=== PATIENT | female | born 1960 | race Caucasian/White ===

== ENCOUNTER 2016-07-09 10:46 | Emergency (ER) | payer OTHER ==
[~2016-07-09] VITALS: Ht 157.5 cm; Wt 74.8 kg
--- NOTE | 2016-07-09 11:34 | ED GI/GU/ABDOMINAL COMPLAINT ---
History of Present Illness General Chief Complaint: General Adult Stated Complaint: HERNIA PAIN Source: patient Exam Limitations: no limitations Vital Signs & Intake/Output Vital Signs & Intake/Output Vital Signs Date Time Temp Pulse Resp B/P B/P Pulse O2 O2 Flow FiO2 Mean Ox Delivery Rate 07/09 1459 98.2 62 15 120/65 94 Room Air Room Air 07/09 1320 Room Air Room Air 07/09 1257 98.0 70 18 125/80 96 Room Air 07/09 1156 71 16 94 Room Air 07/09 1051 98.6 80 20 143/94 7 Allergies Coded Allergies: ketorolac (From TORADOL) ([facility] 07/09/16) meperidine (From DEMEROL) ([facility] 07/09/16) [facility]) Reconcile Medications Ezetimibe (Zetia) 10 MG TABLET 1 TAB PO QPM CHOLESTEROL (Reported) Ondansetron (Zofran Odt) 4 MG TAB.RAPDIS 1 TAB SL TID PRN nausea Oxycodone HCl/Acetaminophen (Percocet 5-325 MG Tablet) 5 MG-325 MG TABLET 1 TAB PO Q6H PRN PAIN Rosuvastatin Calcium (Crestor) 40 MG TABLET 1 TAB PO QPM CHOLESTEROL ( Reported) Triage Note: PER PT VENTRAL HERNIA HX, PER PT THINK IT BURST, VOMITING ALL NIGHT PIN INTENSE Triage Nurses Notes Reviewed? yes ? n Is pt currently ? No HPI: Patient is a 55-year-old female presents complaining of severe epigastric pain. Patient has a history of multiple ventral hernias has had surgery 6 previous times. Yesterday patient was lifting and felt a pop in her mid upper abdomen. Pain has been severe since then. 3 episodes of vomiting since onset of pain. Last bowel movement was 2 days ago. Patient reports she is not passing flatus. Patient reports this feels similar to her previous hernias that have required surgery. Patient tried taking Tylenol but reports that she vomited the medication. Patient denies fevers, chills. (SU RIVERA,NATE) Past History Travel History Traveled to [place] past 21 day No Medical History Any Pertinent Medical History? see below for history Neurological: NONE EENT: NONE Cardiovascular: CHOL Respiratory: NONE Gastrointestinal: HERNIA,VENTRAL Hepatic: NONE Musculoskeletal: NONE Psychiatric: NONE Endocrine: NONE Surgical History Surgical History: appendectomy, cholecystectomy, partial hysterectomy, 6 ventral hernia repairs Psychosocial History What is your primary language Slovak Tobacco Use: Never used ETOH Use: occasional use Family History Hx Contributory? No (NATE PATEL) Review of Systems Review of Systems Constitutional: Denies: chills, fever. EENTM: Reports: no symptoms. Respiratory: Denies: cough, short of breath. Cardiovascular: Denies: chest pain. GI: Reports: see HPI. Genitourinary: Reports: no symptoms. Musculoskeletal: Reports: no symptoms. Skin: Reports: no symptoms. Neurological/Psychological: Reports: no symptoms. Hematologic/Endocrine: Reports: no symptoms. Immunologic/Allergic: Reports: no symptoms. (NATE PATEL) Physical Exam Physical Exam General Appearance: well developed/nourished, alert, awake Head: atraumatic, normal appearance Eyes: Bilateral: normal appearance, PERRL, EOMI. Ears, Nose, Throat, Mouth: hearing grossly normal, moist mucous membrane Neck: normal inspection, supple, full range of motion Respiratory: normal breath sounds, chest non-tender, no respiratory distress, lungs clear Cardiovascular: regular rate/rhythm Gastrointestinal: mildly hypoactive bowel sounds. Surgical scar in the epigastric area. Tenderness with mild guarding to the inferior portion of the surgical scar with small palpable mass. Back: normal inspection, normal range of motion Extremities: normal range of motion Neurologic/Psych: no motor/sensory deficits, awake, alert, oriented x 3, normal gait, normal mood/affect Skin: normal color, warm/dry Core Measures ACS in differential dx? No Severe Sepsis Present: No Septic Shock Present: No (NATE PATEL) Progress Differential Diagnosis: hernia incarcerated/strangulated, sbo, intra-abdominal infection, pancreatitis Plan of Care: Orders Procedure Date/time Status URINALYSIS 07/09 1139 Complete PROTHROMBIN TIME 07/09 1139 Complete LIPASE 07/09 1139 Complete LACTIC ACID 07/09 1139 Complete COMPREHENSIVE METABOLIC PANEL 07/09 1139 Complete CBC WITHOUT DIFFERENTIAL 07/09 1139 Complete AMYLASE 07/09 1139 Complete Laboratory Tests 07/09/16 1439: Lactic Acid Cancelled 07/09/16 1249: Urinalysis LIGHT H, Urine Color YEL, Urine Clarity CLEAR, Urine pH 6.0, Ur Specific Luther 1.020, Urine Protein NEG, Urine Ketones NEG, Urine Nitrite NEG, Urine Bilirubin NEG, Urine Urobilinogen 0.2, Ur Leukocyte Esterase NEG, Ur Microscopic SEDIMENT EXAMINED, Urine RBC 3-5, Urine WBC RARE, Ur Epithelial Cells MANY H, Urine Bacteria MANY H, Hyaline Casts RARE H, Urine Mucus PACKD H, Urine Hemoglobin SMALL H, Urine Glucose NEG 07/09/16 1149: Anion Gap 11, Estimated GFR > 60, BUN/Creatinine Ratio 20.0, Glucose 93, Lactic Acid 1.5, Calcium 9.9, Total Bilirubin 0.7, AST 26, ALT 43, Alkaline Phosphatase 83, Total Protein 7.2, Albumin 4.5, Globulin 2.7, Albumin/Globulin Ratio 1.7, Amylase 60, Lipase 149, PT 9.7, INR 0.92, CBC w Diff NO MAN DIFF REQ, RBC 5.27, MCV 85.9, MCH 28.6, RDW 13.8, MPV 8.9, Gran % 49.9, Lymphocytes % 40.8, Monocytes % 7.3, Eosinophils % 1.4, Basophils % 0.6, Absolute Granulocytes 2.2, Absolute Lymphocytes 1.8, Absolute Monocytes 0.3, Absolute Eosinophils 0.1, Absolute Basophils 0, PUBS MCHC 33.3 1340: Results of CT scan and labs discussed with patient. Call placed to Dr. Islas to discuss patient. Discussed with Dr. Costa. 1355: Discussed with Dr. Islas: will have surgical PA evaluate patient. 1530: Patient evaluated by surgical PA grey: patient can be discharged home and follow up with Dr. Islas outpatient. 1545: Patient tolerating oral intake. Disposition plan discussed with patient. Appears stable for discharge. (SU RIVERA,NATE) Diagnostic Imaging: Viewed by Me: CT Scan. Discussed w/RAD: CT Scan. Radiology Impression: PATIENT: JAREK MEYER PRESENT AGE: 55 PATIENT ACCOUNT NO: [id number] : 62 LOCATION: [facility] ORDERING PHYSICIAN: NATE RIVERA SERVICE DATE: 07/09/16 EXAM TYPE: CAT - CT ABD & PELVIS W/O IV CONTRAS EXAMINATION: CT ABDOMEN AND PELVIS WITHOUT CONTRAST CLINICAL INFORMATION: History of multiple ventral hernias with upper abdominal pain. COMPARISON: None TECHNIQUE: Multidetector volumetric imaging was performed from the superior aspect of the liver through the pubic symphysis. Sagittal and coronal reformatted images were obtained on the technologist's workstation. DLP: 358 mGy-cm FINDINGS: LUNG BASES: The visualized lung bases are unremarkable. LIVER, GALLBLADDER, AND BILIARY TREE: The liver is normal in size, shape, and attenuation. No focal hepatic lesion or biliary ductal dilatation is present. The gallbladder has been removed. PANCREAS: Unremarkable. SPLEEN: Unremarkable. ADRENAL GLANDS: Unremarkable. KIDNEYS AND URETERS: The kidneys are normal in size, shape, and attenuation. No hydronephrosis, hydroureter, or calculi seen. No perinephric stranding. BLADDER: Unremarkable. GASTROINTESTINAL TRACT: Mild colonic diverticulosis. No focal inflammatory process or obstruction. ABDOMINAL WALL: There is a grouping of ventral hernias in the upper abdomen with minimal inflammatory stranding. These hernias contain peritoneal fat with no bowel. There is evidence of a right inguinal hernia repair with no recurrence. LYMPH NODES: Normal. VASCULAR: Unremarkable. PELVIC VISCERA: The uterus is absent. OSSEOUS STRUCTURES: Unremarkable. IMPRESSION: Small ventral midline hernias of the upper abdomen with mild inflammatory stranding. These hernias contain fat only. No bowel obstruction. Otherwise unremarkable study. DICTATED BY: CAMPBELL LONG MD DATE/TIME DICTATED:07/09/161317 CURBER:PABLO DATE/TIME TRANSCRIBED:07/09/161317 CONFIDENTIAL, DO NOT COPY WITHOUT APPROPRIATE AUTHORIZATION. <Electronically signed in Other Vendor System> SIGNED BY: CAMPBELL LONG MD 07/09/16 1339 Initial ED EKG: none (NATE PATEL) Departure Departure Time of Disposition: 1551 Disposition: HOME OR SELF CARE Condition: Stable Clinical Impression Primary Impression: Ventral hernia Referrals: ROBINSON SALCEDO,HEATHER (PCP/Family) SHAHRIAR SALCEDO,ANGELA N. Additional Instructions: Follow up with Dr. Islas within 1 week for further evaluation. Call Monday morning for appointment. Return to the ER if unable to stay hydrated or worsening of symptoms. Take a stool softener(such as colace) to aid with bowel movements. If you continue to have difficulty having a bowel movement then take Miralax as directed. Departure Forms: Customer Survey General Discharge Information Prescriptions: Current Visit Scripts Ondansetron (Zofran Odt) 1 TAB SL TID PRN nausea #10 TAB Oxycodone HCl/Acetaminophen (Percocet 5-325 MG Tablet) 1 TAB PO Q6H PRN PAIN #10 TAB (NATE PATEL) PA/HEALTH AND SAFETY INSTRUCTOR Co-Sign Statement Statement: ED Attending supervision documentation- [] I saw and evaluated the patient. I have also reviewed all the pertinent lab results and diagnostic results. I agree with the findings and the plan of care as documented in the PA's/HEALTH AND SAFETY INSTRUCTOR's documentation. [X] I have reviewed the ED Record and agree with the PA's/HEALTH AND SAFETY INSTRUCTOR's documentation. [] Additions or exceptions (if any) to the PAs/HEALTH AND SAFETY INSTRUCTOR's note and plan are summarized below: [] (MICHAEL SALCEDO,BREA Miguel)
[2016-07-09] MEDS ORDERED: ZETIA10 M1 PO (11:43)
[2016-07-09] MEDS ORDERED: CRESTOR40 M2 PO (11:43)
[2016-07-09 12:08] LABS: ABSOLUTE BASOPHIL COUNT 0 /CUMM (0.0-0.2); ABSOLUTE EOSINOPHIL COUNT 0.1 /CUMM (0.0-0.7); ABSOLUTE GRANULOCYTE CT 2.2 /CUMM (1.4-6.5); ABSOLUTE LYMPH COUNT 1.8 /CUMM (1.2-3.4); ABSOLUTE MONOCYTE COUNT 0.3 /CUMM (0.10-0.60); BASOPHIL % 0.6 % (0.0-2.0); EOSINOPHIL % 1.4 % (0-5); GRANULOCYTE % 49.9 % (42.2-75.2); HEMATOCRIT 45.3 % (37-47); MEAN CORPUSCULAR HGB 28.6 PG (27.0-31.0); MEAN CORPUSCULAR HGB CONC 33.3 G/DL (33.0-37.0); MEAN CORPUSCULAR VOLUME 85.9 FL (81.0-99.0); MEAN PLATELET VOLUME 8.9 FL (7.4-10.4); PLATELET COUNT 293 /CUMM (130-400); RBC DISTRIBUTION WIDTH 13.8 % (11.5-14.5); RED BLOOD CELL CT 5.27 /CUMM (4.20-5.40); WHITE BLOOD CELL COUNT 4.4 /CUMM (4.8-10.8)
[2016-07-09 12:12] LABS: PT 9.7 SEC (9.4-12.5)
--- NOTE | 2016-07-09 13:39 | CT SCAN REPORT ---
EXAMINATION: CT ABDOMEN AND PELVIS WITHOUT CONTRAST CLINICAL INFORMATION: History of multiple ventral hernias with upper abdominal pain. COMPARISON: None TECHNIQUE: Multidetector volumetric imaging was performed from the superior aspect of the liver through the pubic symphysis. Sagittal and coronal reformatted images were obtained on the technologist's workstation. DLP: 358 mGy-cm FINDINGS: LUNG BASES: The visualized lung bases are unremarkable. LIVER, GALLBLADDER, AND BILIARY TREE: The liver is normal in size, shape, and attenuation. No focal hepatic lesion or biliary ductal dilatation is present. The gallbladder has been removed. PANCREAS: Unremarkable. SPLEEN: Unremarkable. ADRENAL GLANDS: Unremarkable. KIDNEYS AND URETERS: The kidneys are normal in size, shape, and attenuation. No hydronephrosis, hydroureter, or calculi seen. No perinephric stranding. BLADDER: Unremarkable. GASTROINTESTINAL TRACT: Mild colonic diverticulosis. No focal inflammatory process or obstruction. ABDOMINAL WALL: There is a grouping of ventral hernias in the upper abdomen with minimal inflammatory stranding. These hernias contain peritoneal fat with no bowel. There is evidence of a right inguinal hernia repair with no recurrence. LYMPH NODES: Normal. VASCULAR: Unremarkable. PELVIC VISCERA: The uterus is absent. OSSEOUS STRUCTURES: Unremarkable. IMPRESSION: Small ventral midline hernias of the upper abdomen with mild inflammatory stranding. These hernias contain fat only. No bowel obstruction. Otherwise unremarkable study.
[2016-07-09 14:59] VITALS: BP 120/65
[2016-07-09] MEDS ORDERED: PERCOCET 5-3251 EACH PO (15:52)
[2016-07-09] MEDS ORDERED: ZOFRAN ODT4 M1 SL (15:52)
== END 2016-07-09 16:01 ==
LOC: ERH 10:46
PROVIDERS: Physician Assistant
DX: K43.9 Ventral hernia without obstruction or gangrene (principal); R11.10 Vomiting, unspecified
CPT/HCPCS: 74176; 81001; 96374; 96375; J1200; J2405

== ENCOUNTER 2016-07-18 10:52 | Emergency (ER) | payer OTHER ==
[~2016-07-18] VITALS: Ht 157.5 cm; Wt 74.8 kg
[~2016-07-18 10:52] MED LIST: CRESTOR40 M2 PO; PERCOCET 5-3251 EACH PO; ZETIA10 M1 PO; ZOFRAN ODT4 M1 SL
--- NOTE | 2016-07-18 12:19 | ED GENERAL ADULT ---
History of Present Illness General Chief Complaint: Dyspnea (COPD, CHF, Other) Stated Complaint: SOB; HERNIA PROBLEM Source: patient Exam Limitations: no limitations Vital Signs & Intake/Output Vital Signs & Intake/Output Vital Signs Date Time Temp Pulse Resp B/P B/P Pulse O2 O2 Flow FiO2 Mean Ox Delivery Rate 07/18 1339 65 20 145/83 95 Room Air 07/18 1102 97.0 74 20 137/93 98 Room Air Allergies Coded Allergies: ketorolac (From TORADOL) ([facility] 07/09/16) meperidine (From DEMEROL) ([facility] 07/09/16) shellfish derived ([facility] 07/09/16) Triage Note: SEEN LAST MONDAY HERE FOR HERNIA AND SEEING DR DE JESUS MONDAY BUT SHE STATES THE PAIN IS GETTING WORSE Triage Nurses Notes Reviewed? yes HPI: 55-year-old female with a history of recurrent ventral hernia status post repair CT scan that confirmed fat-containing ventral wall hernia. Discharged home on Percocet for pain control and scheduled to follow-up with this . Dates that the pain has now become so severe that it is difficult to take a deep breath in. Denies feeling short of breath or chest pain. Endorses nausea and decreased by mouth intake, no vomiting. Fevers. (THAIS MASON,HILARY) Reconcile Medications Ezetimibe (Zetia) 10 MG TABLET 1 TAB PO QPM CHOLESTEROL (Reported) Ondansetron (Zofran Odt) 4 MG TAB.RAPDIS 1 TAB SL TID PRN nausea Oxycodone HCl/Acetaminophen (Percocet 5-325 MG Tablet) 5 MG-325 MG TABLET 1 TAB PO 4 TIMES/DAY PRN pain Oxycodone HCl/Acetaminophen (Percocet 5-325 MG Tablet) 5 MG-325 MG TABLET 1 TAB PO Q6H PRN PAIN Rosuvastatin Calcium (Crestor) 40 MG TABLET 1 TAB PO QPM CHOLESTEROL ( Reported) (FORTUNATO SALCEDO,SHERRY) Past History Travel History Traveled to [place] past 21 day No Medical History Any Pertinent Medical History? see below for history Neurological: NONE EENT: NONE Cardiovascular: CHOL Respiratory: NONE Gastrointestinal: HERNIA,VENTRAL Hepatic: NONE Musculoskeletal: NONE Psychiatric: NONE Endocrine: NONE Influenza Vaccine: 01/09/16 Surgical History Surgical History: appendectomy, cholecystectomy, partial hysterectomy, 6 ventral hernia repairs Psychosocial History What is your primary language French Tobacco Use: Never used ETOH Use: occasional use Illicit Drug Use: denies illicit drug use Family History Hx Contributory? No (THAIS MASON,HILARY) Review of Systems Review of Systems Constitutional: Denies: chills, fever. Respiratory: Reports: no symptoms. Cardiovascular: Reports: no symptoms. GI: Reports: abdominal pain, nausea. Denies: diarrhea, distention, vomiting. Genitourinary: Denies: discharge, dysuria. (HILARY PLASCENCIA PA-C) Physical Exam Physical Exam General Appearance: well developed/nourished, no apparent distress Head: atraumatic Respiratory: normal breath sounds, lungs clear Cardiovascular: regular rate/rhythm Gastrointestinal: normal bowel sounds, soft, tenderness, on exam abdomen is soft , nondistended, there is an old well-healed vertical scar to mid abdomen from prior hernia repairs, tender to palpation directly over prior repair site, no rebound or guarding Core Measures ACS in differential dx? No CVA/TIA Diagnosis: No Severe Sepsis Present: No Septic Shock Present: No (HILARY PLASCENCIA PA-C) Progress Differential Diagnoses I considered the following diagnoses in my evaluation of the patient: [ Strangulate hernia versus incarcerated hernia versus reducible hernia] Plan of Care: Orders Procedure Date/time Status LACTIC ACID 07/18 1527 Active LACTIC ACID 07/18 1227 Complete CBC WITHOUT DIFFERENTIAL 07/18 1227 Complete BASIC METABOLIC PANEL 07/18 1227 Complete Laboratory Tests 07/18/16 1254: Anion Gap 10, Estimated GFR > 60, BUN/Creatinine Ratio 15.7, Glucose 98, Lactic Acid 1.1, Calcium 10.0, CBC w Diff NO MAN DIFF REQ, RBC 5.21, MCV 84.4, MCH 28.4 , RDW 13.6, MPV 8.8, Gran % 48.1, Lymphocytes % 42.3, Monocytes % 7.4, Eosinophils % 1.2, Basophils % 1.0, Absolute Granulocytes 2.2, Absolute Lymphocytes 1.9, Absolute Monocytes 0.3, Absolute Eosinophils 0.1, Absolute Basophils 0, PUBS MCHC 33.7 CT scan from July 09 shows a small fat-containing hernia. Lactate is within normal limits at 1.1 and patient has been afebrile. Patient evaluated by on- call surgical attending. Will discharge home with additional Percocet prescription and patient all up with as scheduled. (HILARY PLASCENCIA PA-C) Initial ED EKG: none (HILARY PLASCENCIA PA-C) Departure Departure Disposition: HOME OR SELF CARE Condition: Stable Clinical Impression Primary Impression: Ventral hernia Referrals: ROBINSON SALCEDO,HEATHER (PCP/Family) Additional Instructions: Use Percocet every 6 hours as needed for pain. Use Zofran every 8 hours as needed for nausea. Follow-up with Dr. Islas on as scheduled. Departure Forms: Customer Survey General Discharge Information (HILARY PLASCENCIA PA-C) Departure Prescriptions: Current Visit Scripts Oxycodone HCl/Acetaminophen (Percocet 5-325 MG Tablet) 1 TAB PO 4 TIMES/DAY PRN pain #12 TAB PA/INTERNATIONAL STUDENT ADVISOR Co-Sign Statement Statement: ED Attending supervision documentation- [] I saw and evaluated the patient. I have also reviewed all the pertinent lab results and diagnostic results. I agree with the findings and the plan of care as documented in the PA's/INTERNATIONAL STUDENT ADVISOR's documentation. [X] I have reviewed the ED Record and agree with the PA's/INTERNATIONAL STUDENT ADVISOR's documentation. [] Additions or exceptions (if any) to the PAs/INTERNATIONAL STUDENT ADVISOR's note and plan are summarized below: [] (FORTUNATO SALCEDO,SHERRY) Critical Care Note Critical Care Note Critical Care Time: non-applicable (HILARY PLASCENCIA PA-C)
[2016-07-18 13:06] LABS: ABSOLUTE BASOPHIL COUNT 0 /CUMM (0.0-0.2); ABSOLUTE EOSINOPHIL COUNT 0.1 /CUMM (0.0-0.7); ABSOLUTE GRANULOCYTE CT 2.2 /CUMM (1.4-6.5); ABSOLUTE LYMPH COUNT 1.9 /CUMM (1.2-3.4); ABSOLUTE MONOCYTE COUNT 0.3 /CUMM (0.10-0.60); EOSINOPHIL % 1.2 % (0-5); GRANULOCYTE % 48.1 % (42.2-75.2); MEAN CORPUSCULAR HGB 28.4 PG (27.0-31.0); MEAN CORPUSCULAR HGB CONC 33.7 G/DL (33.0-37.0); MEAN CORPUSCULAR VOLUME 84.4 FL (81.0-99.0); MEAN PLATELET VOLUME 8.8 FL (7.4-10.4); PLATELET COUNT 250 /CUMM (130-400); RBC DISTRIBUTION WIDTH 13.6 % (11.5-14.5); RED BLOOD CELL CT 5.21 /CUMM (4.20-5.40); WHITE BLOOD CELL COUNT 4.5 /CUMM (4.8-10.8)
[2016-07-18 13:39] VITALS: BP 145/83
[2016-07-18] MEDS ORDERED: PERCOCET 5-3251 EACH PO (15:07)
== END 2016-07-18 15:15 ==
LOC: ERH 10:52
PROVIDERS: Physician Assistant
DX: K43.9 Ventral hernia without obstruction or gangrene (principal)
CPT/HCPCS: 96374